=== PATIENT | female | born 1980 ===

== ENCOUNTER 2020-07-17 14:40 | Emergency (ER) | payer SELFPAY ==
[2020-07-17] MEDS ORDERED: ONDANSETRON 4 MG/2 ML INJ IV ONE ×2 (14:56→17:22)
[2020-07-17] MEDS ORDERED: MORPHINE 4 MG/1 ML INJ IV ONE (14:56)
[2020-07-17] MEDS ORDERED: TETRACAINE 0.5% OPHTH SOLN 4ML OU PRN (14:57)
[2020-07-17] MEDS ORDERED: TETANUS,DIPHTHERIA TOXOID ADULT 0.5 ML INJ IM ONE (14:57)
[2020-07-17] MEDS ORDERED: FLUORESCEIN 1 MG STRIP OP ONE ×2 (14:58→15:00)
[2020-07-17] MEDS ORDERED: TETRACAINE 0.5% OPHTH SOLN 4ML ONE (14:58)
[2020-07-17] MEDS ORDERED: BALANCED SALT IRRIG (BSS) OPHTH SOLN 15 ML ONE (14:58)
[2020-07-17] MEDS ORDERED: DIPHtheria,PERTUSSIS(ACELL),TETANUS VACCINE/PF 0.5 ML VIAL IM ONE (15:16)
[2020-07-17] MEDS ORDERED: diphenhydrAMINE 50 MG/ML VIAL IV ONE (17:01)
[2020-07-17] MEDS ORDERED: MORPHINE 2 MG/1 ML INJ IV ONE (17:01)
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
[2020-07-17 22:22] VITALS: BP 110/72
== END 2020-07-17 18:05 | disposition home or self-care (01) ==
LOC: ED 14:40
DX: T26.11XA Burn of cornea and conjunctival sac, right eye, initial encounter (principal); Z79.899 Other long term (current) drug therapy; X08.8XXA Exposure to other specified smoke, fire and flames, initial encounter; Y93.89 Activity, other specified; Y92.89 Other specified places as the place of occurrence of the external cause; Y99.8 Other external cause status
CPT/HCPCS: 90471; 90715; 96374; 96375; 96376; 99284; J1200; J2270; J2405